=== PATIENT | male | born 1935 | race Caucasian/White ===

== ENCOUNTER 2016-11-06 17:44 | Inpatient (IN) | payer MEDICARE ==
[~2016-11-06 17:44] MED LIST: ARICEPT10 M2 PO; ASPIRIN EC81 MG PO; BYSTOLIC2.5 M1 PO; COZAAR100 M1 PO; COZAAR50 M1 PO; GLIPIZIDE XL10 M1 PO; GLIPIZIDE10 M2 PO; HYDROCODON-ACE1 EA16 PO; INDOMETHACIN50 M1 PO; LEVOTHYROXINE112 MC3 PO; LISINOPRIL-HCT1 EAC1 PO; LOSARTAN; METFORMIN HCL1000 M2 PO; NORVASC10 M2 PO; TOPROL XL50 M1 PO; VITAMIN B-121000 MC1 PO; ZOCOR10 M1 PO
[2016-11-06 20:03] LABS: URINE LEUKOCYTE ESTERASE POSITIVE (NEG); URINE PROTEIN MODERATE (NEG)
[2016-11-06 20:04] LABS: URINE APPEARANCE CLEAR; URINE BILIRUBIN NEGATIVE (NEG); URINE BLOOD LARGE (NEG); URINE COLOR BROWN; URINE GLUCOSE (UA) LARGE (NEG); URINE KETONE SMALL (NEG); URINE NITRITE NEGATIVE (NEG)
[2016-11-06] MEDS ORDERED: NORCO 5-325 TA1 EACH PO (20:09)
[2016-11-06 20:10] LABS: URINE RBC 0-1 /[HPF] (0-5)
[2016-11-06] MEDS ORDERED: PAXIL10 M1 PO (20:10)
[2016-11-06] MEDS ORDERED: INDOMETHACIN50 M1 PO (20:13)
[2016-11-06] MEDS ORDERED: ARICEPT10 M2 PO (20:13)
[2016-11-06 20:33] LABS: BASO % 0.2 % (0-2); EOS % 0.1 % (0-7); HCT-HEMATOCRIT 35.9 % (36.0-53.5); HGB-HEMOGLOBIN 12.3 gm/dl (13.5-17.0); IMMATURE GRANULOCYTES ABSOLUTE 0.15 tho/cmm (0-0.03); IMMATURE GRANULOCYTES PERCENT 0.7 % (0-0.3); LYMPH % 9.4 % (20-45); LYMPH ABSOLUTE COUNT 1.9 tho/cmm (0.8-4.5); MCH (MEAN CORPUSCULAR HGB) 31.5 pg (28.0-32.0); MCHC MEAN CORPUSCULAR HGB CONC 34.3 % (32.0-36.0); MCV (MEAN CELL VOLUME) 91.8 fl (82.0-96.0); MEAN PLATELET VOLUME 9.9 cmc (9.4-12.4); MONO % 7.9 % (0-12); MONOCYTE ABSOLUTE COUNT 1.6 tho/cmm (0.0-1.2); NEUTROPHIL ABSOLUTE COUNT 16.6 tho/cmm (1.6-8.0); NEUTROPHIL-AUTOMATED 16.6 tho/cmm (1.6-8.0); NEUTROPHILS % 81.7 % (40-80); PLATELET COUNT 209 tho/cmm (150-450); RED BLOOD COUNT 3.91 mil/cmm (4.40-5.70); RED CELL DISTRIBUTION WIDTH 13.1 % (12.4-16.4); WHITE BLOOD COUNT 20.4 tho/cmm (4.0-10.0)
[2016-11-06 20:44] LABS: ANION GAP 15 mmol/L (0-20); BLOOD UREA NITROGEN 36 mg/dl (6-24); CARBON DIOXIDE-VENOUS 21 mmol/L (22-32); CHLORIDE 105 mmol/l (96-110); CREATININE 2.07 mg/dl (0.60-1.30); GLUCOSE 349 mg/dL (70-110); POTASSIUM 4.1 mmol/L (3.7-5.1); SODIUM 137 mmol/L (135-145); eGFR VALUE FOR BLACK 34 mL/Min
[2016-11-07 02:35] LABS: ALB/GLOB RATIO 0.7 (0.8-2.0); ALBUMIN 2.8 g/dl (3.5-5.0); ALKALINE PHOSPHATASE 71 U/L (33-138); ALT/SGPT 11 U/L (12-78); ANION GAP 14 mmol/L (0-20); AST/SGOT 6 U/L (10-40); BLOOD UREA NITROGEN 31 mg/dl (6-24); CALCIUM 8.1 mg/dl (8.5-10.5); CARBON DIOXIDE-VENOUS 24 mmol/L (22-32); CHLORIDE 105 mmol/l (96-110); CKMB <0.5 ng/ml (<3.6); CREATINE PHOSPHOKINASE (CPK) 24 U/L (35-232); CREATININE 1.77 mg/dl (0.60-1.30); GLUCOSE 310 mg/dL (70-110); MAGNESIUM 1.6 mg/dl (1.3-2.6); PHOSPHOROUS 1.9 mg/dl (2.5-4.9); SODIUM 139 mmol/L (135-145); eGFR VALUE FOR BLACK 41 mL/Min
[2016-11-07 02:38] LABS: TSH-THYROID STIMULATING HORM. 2.15 uIU/ml (0.40-3.80)
[2016-11-07 02:51] LABS: URINE PHOSPHORUS-RANDOM 71.4 mg/dl (20-60); URINE TOTAL PROTEIN-RANDOM 136.9 mg/dl (<11.8)
[2016-11-07 02:54] LABS: URINE PRT/CR RATIO 0.48 Ratio (0.0-0.20)
[2016-11-07 03:08] LABS: C-REACTIVE PROTEIN 33.7 mg/dl (0-0.9)
[2016-11-07 04:27] LABS: PROCALCITONIN 1.89 ng/ml (0.05-0.09)
[2016-11-07 05:23] LABS: INR 1.3 INR (0.9-1.1); PROTHROMBIN TIME 15.2 SECONDS (9.0-13.6)
[2016-11-07 05:24] LABS: BASO % 0.1 % (0-2); EOS % 0.3 % (0-7); HCT-HEMATOCRIT 32.8 % (36.0-53.5); HGB-HEMOGLOBIN 10.9 gm/dl (13.5-17.0); IMMATURE GRANULOCYTES ABSOLUTE 0.06 tho/cmm (0-0.03); IMMATURE GRANULOCYTES PERCENT 0.4 % (0-0.3); LYMPH % 10.2 % (20-45); LYMPH ABSOLUTE COUNT 1.4 tho/cmm (0.8-4.5); MCH (MEAN CORPUSCULAR HGB) 30.8 pg (28.0-32.0); MCHC MEAN CORPUSCULAR HGB CONC 33.2 % (32.0-36.0); MCV (MEAN CELL VOLUME) 92.7 fl (82.0-96.0); MEAN PLATELET VOLUME 9.9 cmc (9.4-12.4); MONO % 6.7 % (0-12); MONOCYTE ABSOLUTE COUNT 0.9 tho/cmm (0.0-1.2); NEUTROPHIL ABSOLUTE COUNT 11.3 tho/cmm (1.6-8.0); NEUTROPHIL-AUTOMATED 11.3 tho/cmm (1.6-8.0); NEUTROPHILS % 82.3 % (40-80); PLATELET COUNT 186 tho/cmm (150-450); RED BLOOD COUNT 3.54 mil/cmm (4.40-5.70); RED CELL DISTRIBUTION WIDTH 12.9 % (12.4-16.4); WHITE BLOOD COUNT 13.7 tho/cmm (4.0-10.0)
[2016-11-07 05:35] LABS: ANION GAP 11 mmol/L (0-20); BLOOD UREA NITROGEN 28 mg/dl (6-24); CALCIUM 8.1 mg/dl (8.5-10.5); CARBON DIOXIDE-VENOUS 25 mmol/L (22-32); CHLORIDE 107 mmol/l (96-110); CREATININE 1.61 mg/dl (0.60-1.30); GLUCOSE 295 mg/dL (70-110); SODIUM 139 mmol/L (135-145); eGFR VALUE FOR BLACK 45 mL/Min
[2016-11-08 05:52] LABS: BASO % 0.4 % (0-2); EOS % 3.5 % (0-7); EOSINOPHIL ABSOLUTE COUNT 0.3 tho/cmm (0.0-0.7); HCT-HEMATOCRIT 28.5 % (36.0-53.5); HGB-HEMOGLOBIN 9.6 gm/dl (13.5-17.0); IMMATURE GRANULOCYTES ABSOLUTE 0.04 tho/cmm (0-0.03); IMMATURE GRANULOCYTES PERCENT 0.5 % (0-0.3); LYMPH % 14.6 % (20-45); LYMPH ABSOLUTE COUNT 1.1 tho/cmm (0.8-4.5); MCH (MEAN CORPUSCULAR HGB) 30.6 pg (28.0-32.0); MCHC MEAN CORPUSCULAR HGB CONC 33.7 % (32.0-36.0); MCV (MEAN CELL VOLUME) 90.8 fl (82.0-96.0); MEAN PLATELET VOLUME 9.8 cmc (9.4-12.4); MONO % 7.2 % (0-12); MONOCYTE ABSOLUTE COUNT 0.6 tho/cmm (0.0-1.2); NEUTROPHIL ABSOLUTE COUNT 5.6 tho/cmm (1.6-8.0); NEUTROPHIL-AUTOMATED 5.6 tho/cmm (1.6-8.0); NEUTROPHILS % 73.8 % (40-80); PLATELET COUNT 172 tho/cmm (150-450); RED BLOOD COUNT 3.14 mil/cmm (4.40-5.70); RED CELL DISTRIBUTION WIDTH 12.8 % (12.4-16.4); WHITE BLOOD COUNT 7.6 tho/cmm (4.0-10.0)
[2016-11-08 06:13] LABS: ANION GAP 13 mmol/L (0-20); BLOOD UREA NITROGEN 27 mg/dl (6-24); CALCIUM 7.7 mg/dl (8.5-10.5); CARBON DIOXIDE-VENOUS 24 mmol/L (22-32); CHLORIDE 106 mmol/l (96-110); GLUCOSE 234 mg/dL (70-110); POTASSIUM 3.5 mmol/L (3.7-5.1); SODIUM 139 mmol/L (135-145); eGFR VALUE FOR BLACK 46 mL/Min
[2016-11-08] MEDS ORDERED: CEFTIN250 MG/51 PO (10:37)
[2017-03-25] MEDS ORDERED: AUGMENTIN 875-1 EAC2 PO (10:32)
== END 2016-11-08 13:15 | DRG 872 ==
LOC: EDMED 17:44 → EMR2 11-07 02:04 → PCUA 11-07 02:15 → 5WE 11-07 15:00
PROVIDERS: Emergency Medicine; Family Medicine; ADMIT Hospitalist
DX: A41.51 Sepsis due to Escherichia coli [E. coli] (principal); N17.9 Acute kidney failure, unspecified; N39.0 Urinary tract infection, site not specified; F03.90 Unspecified dementia, unspecified severity, without behavioral disturbance, psychotic disturbance, mood disturbance, and anxiety; R65.20 Severe sepsis without septic shock; E11.9 Type 2 diabetes mellitus without complications; I10 Essential (primary) hypertension; M10.9 Gout, unspecified; K58.9 Irritable bowel syndrome, unspecified; E03.9 Hypothyroidism, unspecified; E78.5 Hyperlipidemia, unspecified; E86.0 Dehydration; Z79.82 Long term (current) use of aspirin; Z79.4 Long term (current) use of insulin
CPT/HCPCS: J1650; J1815; J2543; J3370; J7030